=== PATIENT | male | born 1940 | race Caucasian/White ===

== ENCOUNTER 2017-11-13 09:46 | Day surgery (SDC) | payer MEDICARE, OTHER ==
[2017-11-12 12:55] LABS: CHLORIDE 100 mmol/L (98-107)
[2017-11-12 13:02] LABS: ALANINE AMINOTRANSFERASE 16 U/L (12-78); ALKALINE PHOSPHATASE 73 U/L (45-117); ANION GAP 7 mmol/L (5-15); BILIRUBIN,TOTAL 0.6 mg/dL (0.2-1.0); CALCIUM 8.5 mg/dL (8.5-10.1); CREATININE 0.94 mg/dL (0.7-1.3); TOTAL PROTEIN 6.3 g/dL (6.4-8.2)
[~2017-11-13] VITALS: Ht 170.2 cm; Wt 80.8 kg
[~2017-11-13 09:46] MED LIST: BACITRACIN 50,000 UNIT ONE; BUPR150T6 PO; CLOP75TA PO; FLUO10CA7 PO; GABA300C10 PO; METO25TA35 PO; MORPHINE PO; MULT1TAB60 PO; MYCO180T10 PO; NIFE10CA PO; OMEP20TA62 PO; OXYB5TAB7 PO; Percocet PO; ROSU5TAB PO; SILD20TA PO; [UNRECOGNIZED DRUG - REMARK]
[2017-11-13] MEDS ORDERED: LACTATED RINGERS 1,000 ML IV SCH (10:05)
[2017-11-13 10:54] VITALS: BP 166/76
[2017-11-13] MEDS ORDERED: METO25TA91 PO (10:59)
[2017-11-13] MEDS ORDERED: OXYB5TAB PO (11:05)
[2017-11-13] MEDS ORDERED: FLUO20TA25 PO (11:05)
[2017-11-13] MEDS ORDERED: MYCO500T3 PO (11:07)
[2017-11-13] MEDS ORDERED: OXYC-307 PO (11:07)
[2017-11-13] MEDS ORDERED: MORP30TA3 PO (11:07)
[2017-11-13] MEDS ORDERED: LANS30CA PO (11:09)
[2017-11-13] MEDS ORDERED: ROPI1TAB2 PO (11:11)
[2017-11-13] MEDS ORDERED: PARO25TA12 PO (11:11)
[2017-11-13] MEDS ORDERED: ASPI-496 PO (11:12)
[2017-11-13] MEDS ORDERED: ALLO100T64 PO (11:12)
[2017-11-13] MEDS ORDERED: FENTANYL PF 250 MCG/5ML ONE (12:02)
[2017-11-13] MEDS ORDERED: MIDAZOLAM 1 MG/ML, 2ML ONE (12:02)
[2017-11-13] MEDS ORDERED: LIDOCAINE 1%, 50ML INFIL ONE (12:41)
[2017-11-13] MEDS ORDERED: PROPOFOL 10 MG/ML, 20ML ONE (13:25)
[2017-11-13] MEDS ORDERED: CEFAZOLIN 1,000 MG ONE (13:25)
[2017-11-13] MEDS ORDERED: DEXAMETHASONE 4 MG/ML, 1ML ONE (13:25)
[2017-11-13] MEDS ORDERED: ONDANSETRON 2MG/ML, 2ML ONE (13:25)
[2017-11-13] MEDS ORDERED: FENTANYL PF 100 MCG/2ML IV PRN (13:30)
[2017-11-13] MEDS ORDERED: hydrALAzine 20 MG/ML, 1ML IV PRN (13:30)
[2017-11-13] MEDS ORDERED: HYDROcodone/APAP 7.5-325MG/15ML UDC PO PRN (13:30)
[2017-11-13] MEDS ORDERED: EPHEDRINE 50 MG/ML, 1ML IVPush PRN (13:30)
[2017-11-13] MEDS ORDERED: METOPROLOL 1 MG/ML, 5ML IV PRN (13:30)
[2017-11-13] MEDS ORDERED: OXYcodone 5 MG/5 ML ORAL.SOL UDC PO PRN (13:30)
[2017-11-13] MEDS ORDERED: DIAZEPAM 5 MG/ML, 2ML IVPush PRN (13:30)
[2017-11-13] MEDS ORDERED: ACETAMINOPHEN 325 MG TABLET PO PRN (13:30)
[2017-11-13] MEDS ORDERED: PROMETHAZINE 25 MG/ML, 1ML IV PRN (13:30)
[2017-11-13] MEDS ORDERED: ONDANSETRON 2MG/ML, 2ML IVPush PRN (13:30)
[2017-11-13] MEDS ORDERED: LABETALOL 5MG/ML, 20ML IV PRN (13:30)
[2017-11-13] MEDS ORDERED: MIDAZOLAM 1 MG/ML, 2ML IV PRN (13:30)
[2017-11-13] MEDS ORDERED: ALBUTEROL/IPRATROPIUM 2.5MG/0.5MG, 3 ML NPPB PRN (13:30)
[2017-11-13] MEDS ORDERED: HYDROmorphone 1 MG/ML, 1ML IV PRN (13:30)
[2017-11-13] MEDS ORDERED: ACETAMINOPHEN 650 MG/20.3 ML UDC ONE (13:49)
[2017-11-13] MEDS ORDERED: OXYcodone 5 MG/5 ML ORAL.SOL UDC ONE (13:50)
[2017-11-13] MEDS ORDERED: LIDOCAINE 1%, 50ML ONE (13:57)
== END 2017-11-13 15:45 ==
LOC: OUT 09:46
PROVIDERS: ATTEND Orthopaedic Surgery
DX: I96 Gangrene, not elsewhere classified (principal); M79.645 Pain in left finger(s); I10 Essential (primary) hypertension; J44.9 Chronic obstructive pulmonary disease, unspecified; K21.9 Gastro-esophageal reflux disease without esophagitis; I25.10 Atherosclerotic heart disease of native coronary artery without angina pectoris; Z86.73 Personal history of transient ischemic attack (TIA), and cerebral infarction without residual deficits; Z88.8 Allergy status to other drugs, medicaments and biological substances; Z88.1 Allergy status to other antibiotic agents; Z91.040 Latex allergy status
CPT/HCPCS: 26236; 36415; 64820; 80053; 88305; 88311; 93005; J0690; J1100; J2250; J2405; J2704; J3010; J3490; J7120